=== PATIENT | male | born 2000 | race Two or more races ===

== ENCOUNTER 2024-01-23 17:28 | Emergency (ER) | payer MEDICAID, SELFPAY ==
[2024-01-23 17:57] VITALS: BP 128/79; PULSE 93; RESP 19; TEMP 36.9; O2SAT 98
--- NOTE | 2024-01-23 19:01 | PD.EDDENTL ---
ED Dental RME/HPI General Chief complaint: Dental/Oral/Throat Stated complaint: TOOTH ABSCESS X YESTERDAY Time Seen by Provider: 01/23/24 17:41 Arrival date/time: 01/23/24 17:28 23M with no significant PMH presents to ED with L upper dental pain for several days. Patient does not go to dentist regularly, but will. Limitations: no limitations Related Data Previous Rx's ?Medication ?Instructions ?Recorded amoxicillin 875 mg-potassium 1 tab PO BID 7 days #14 tabs 01/23/24 clavulanate 125 mg tablet naproxen 500 mg tablet 500 mg PO BID PRN pain #30 tabs 01/23/24 Allergies Allergy/AdvReac Type Severity Reaction Status Date / Time NKA Allergy Intermediate NONE Uncoded 01/23/24 17:30 Review of Systems Review of Systems Systems Reviewed: All systems reviewed, normal except as documented Constitutional Constitutional: Reports system reviewed and no additional complaints, except as documented, Denies fever(s) and Denies headache(s) ENT Ears, Nose, Mouth, and Throat: Reports as per HPI, Reports dental pain, Denies disequilibrium and Denies headache(s) Cardiovascular Cardiovascular: Reports system reviewed and no additional complaints, except as documented, Denies chest pain and Denies dyspnea Respiratory Respiratory: Reports system reviewed and no additional complaints, except as documented, Denies cough and Denies dyspnea Gastrointestinal Gastrointestinal: Reports system reviewed and no additional complaints, except as documented, Denies abdominal pain, Denies nausea and Denies vomiting Neurologic Neurologic: Reports system reviewed and no additional complaints, except as documented, Denies confusion, Denies disequilibrium and Denies headache(s) Psychiatric Psychiatric: Denies confusion Past Medical History Social History SMOKING STATUS: Never smoker ED Exam General Limitations: Present no limitations General appearance: Present alert and in no apparent distress Head Head exam: Present atraumatic Eye Eye exam: Present normal appearance, PERRL and EOMI ENT ENT exam: Present mucous membranes moist Expanded ENT Exam Teeth exam: Present gingival swelling Neck Neck exam: Present normal inspection, full ROM and trachea midline Chest Chest inspection: Present normal inspection and symmetric chest wall rise Respiratory Respiratory exam: Present normal lung sounds bilaterally Cardiovascular Cardiovascular exam: Present regular rate, normal rhythm and normal heart sounds Abdominal Exam Abdominal exam: Present soft and normal bowel sounds Extremities Exam Extremities exam: Present normal inspection and full ROM Back Exam Back exam: Present normal inspection and full ROM Neurological Exam Neurological exam: Present alert, oriented X3 and CN II-XII intact Psychiatric Psychiatric exam: Present normal affect and normal mood Skin Skin exam: Present warm, dry, intact and normal color Course Quality Measures none Orders Category Date Time Status Amoxicillin/Pot Clav 875 [Augmentin 875] Med 01/23/24 18:37 Discontinued 1 tab PO X1 ONE Ketorolac Inj [Toradol Inj] Med 01/23/24 18:37 Discontinued 60 mg IM X1 ONE Vital Signs Vital signs: Vital Signs Temperature 98.5 F 01/23/24 17:57 Pulse Rate 93 01/23/24 17:57 Respiratory Rate 19 01/23/24 17:57 Blood Pressure 128/79 01/23/24 17:57 Pulse Oximetry (%) 98 01/23/24 17:57 Oxygen Delivery Method Room Air 01/23/24 17:57 O2 at 98% on RA and WNLs Dental / Oral MDM Narrative MDM Narrative:: 23M with no significant PMH presents to ED with L upper dental pain for several days. Patient does not go to dentist regularly, but will. Physical exam reveals missing L upper tooth with gingival swelling. Patient is afebrile, calm, and alert. Meds and behavioral health counselor given. Patient data External records reviewed:: None Clinical information provided by:: patient Social determinants that could affect healthcare access:: none Patient has the following chronic illnesses:: none How is presenting disease/condition affected by chronic disease/condition?: no chronic disease Evaluation data The following diagnostics were reviewed and interpreted by me:: other (specify) (none) Lab and/or radiology exams considered but not ordered:: not ordered Interpretation Summary: n/a Medications / Prescriptions Medications or Prescriptions considered but not ordered:: ordered Medication administrations:: Medication Administration History Discontinued Medications Amoxicillin/Clavulanate Potassium (Amoxicillin/Pot Clav 875 Tablet) 1 tab PO X1 ONE Stop: 01/23/24 18:38 Ketorolac Tromethamine (Ketorolac Inj 60 Mg/2 Ml Vial) 60 mg IM X1 ONE Stop: 01/23/24 18:38 above Consultations Consultation(s) initiated? (list below): No Diagnosis Dental Differential Diagnosis: gingival abscess, dental caries, toothache, dental abscess, fracture of tooth and aphthous ulcer Most likely diagnosis given after review of the tests above:: gingival abscess Admission Indicated Admission indicated?: not indicated Admission Request Was there a request for admission?: No Disposition Plan Disposition Plan: Discharge Discharge Attestation Discharge Attestation: The patient and all family members were given an opportunity to ask questions and understood the discharge instructions. Discharge instructions specifically effects, indications for sooner follow up or return to the emergency department, and the expected course of current diagnosis. Patient condition: Stable Discharge Plan Plan Patient Disposition: HOME (Self Care) Disposition Comment: Stable Prescriptions/Referrals Prescriptions/Med Rec: New amoxicillin-pot clavulanate 875-125 mg tablet 1 tab PO BID 7 Days Qty: 14 0RF naproxen 500 mg tablet 500 mg PO BID PRN (Reason: pain) Qty: 30 0RF Referrals: Camron Reyes MD [Primary Care Provider] - In 1 week Problem List Clinical Impression: Gingival abscess Patient/Caregiver Discharge Instructions Additional Instructions: Please follow-up with PCP within 24-48 hours and return immediately if symptoms worsen. See dentist soon. Print Language: Czech Stand Alone Forms: Patient Portal Info Letter ROBE/SHAHIDA Supervising Physician PETER Supervising Physician: Dr. Funes
[2024-01-23] MEDS: AMOXICILLIN/POT CLAV 875 TABLET 1 TAB PO (19:22)
[2024-01-23] MEDS: KETOROLAC INJ 60 MG/2 ML VIAL IM (19:22)
== END 2024-01-23 19:48 | disposition home or self-care (01) ==
PROVIDERS: Emergency Provider Emergency Medicine; PCP Family Medicine
DX: K05.219 Aggressive periodontitis, localized, unspecified severity (principal)
CPT/HCPCS: 96372; 99283; J1885; A9270

== ENCOUNTER 2024-06-23 13:42 | Emergency (ER) | payer MEDICAID, SELFPAY ==
[2024-06-23 13:50] VITALS: BP 141/81; PULSE 108; RESP 18; TEMP 37.2; O2SAT 97; BMI 26.7
--- NOTE | 2024-06-23 14:03 | XR_ITS ---
Examination: CT brain head without contrast. 2-D sagittal coronal reconstructions Date and time of exam:June 23, 2024 1545 hours INDICATIONS: Onset right-sided facial droop today CTDI: vol (mGy):52 DLP: (mGycm):1142 Technique: Multiple CT axial sections of the brain have been obtained, 5 mm slice thickness. Contrast has not been administered. 2-D sagittal, coronal reconstructions have been obtained Low dose protocols were performed. One or more of the following dose reduction techniques were used; automated exposure control, adjustment of the mA and/or KV according to patient size, use of iterative reconstruction technique. Findings: No significant ventricular enlargement. Intra-axial or extra-axial hemorrhage density is not seen. No mass effect or midline shift Basal cisterns are not remarkable. Fourth ventricle is midline. Cranial vault intact. Impression: Negative for acute hemorrhage, mass effect or midline shift Brain MRI follow-up would best assess for demyelinating disease, acute ischemic change, as clinically warranted
--- NOTE | 2024-06-23 15:23 | PD.EDNEURO ---
Neuro Symptoms Deficit-RME/HPI General Chief Complaint: Neuro Symptoms/Deficit Stated Complaint: R FACIAL PARALYSIS SINCE LAST NIGHT Time Seen by Provider: 06/23/24 14:03 Arrival date/time: 06/23/24 13:42 23-year-old male presents to the emergency department today for complaints of right-sided facial paralysis ongoing since yesterday, patient reports no headache dizziness or weakness patient reports no extremity involvement Limitations: no limitations Related Data Previous Rx's ?Medication ?Instructions ?Recorded naproxen 500 mg tablet 500 mg PO BID PRN pain #30 tabs 01/23/24 prednisone 10 mg tablet 30 mg (3 x 10 mg) PO BID 5 days 06/23/24 #30 tabs valacyclovir 1 gram tablet 1,000 mg PO TID 7 days #21 tabs 06/23/24 Allergies Allergy/AdvReac Type Severity Reaction Status Date / Time NKA Allergy Intermediate NONE Uncoded 06/23/24 13:42 Review of Systems Review of Systems Systems Reviewed: All systems reviewed, normal except as documented Constitutional Constitutional: Reports system reviewed and no additional complaints, except as documented, Denies fever(s), Denies headache(s) and Denies weakness Eyes Eyes: Reports system reviewed and no additional complaints, except as documented and Denies blurry vision ENT Ears, Nose, Mouth, and Throat: Reports system reviewed and no additional complaints, except as documented, Denies abnormal hearing, Denies disequilibrium, Denies dizziness, Denies headache(s), Denies nasal congestion, Denies nasal discharge and Denies vertigo Cardiovascular Cardiovascular: Reports system reviewed and no additional complaints, except as documented, Denies chest pain and Denies dyspnea Respiratory Respiratory: Reports system reviewed and no additional complaints, except as documented, Denies chest congestion, Denies cough and Denies dyspnea Gastrointestinal Gastrointestinal: Reports system reviewed and no additional complaints, except as documented and Denies abdominal pain Musculoskeletal Musculoskeletal: Denies abnormal gait Integumentary/Breasts Skin/Breast: Reports system reviewed and no additional complaints, except as documented and Denies rash Neurologic Neurologic: Reports system reviewed and no additional complaints, except as documented, Reports as per HPI, Denies abnormal gait, Denies abnormal hearing, Denies abnormal movements, Denies convulsions, Denies disequilibrium, Denies dizziness, Denies headache(s), Denies vertigo, Denies weakness and Reports other (Right-sided facial palsy) Past Medical History Social History SMOKING STATUS: Never smoker ED Exam General Limitations: Present no limitations General appearance: Present alert and in no apparent distress Head Head exam: Present atraumatic Eye Eye exam: Present normal appearance, PERRL and EOMI ENT ENT exam: Present normal exam, normal oropharynx and mucous membranes moist Neck Neck exam: Present normal inspection, full ROM and trachea midline Chest Chest inspection: Present normal inspection and symmetric chest wall rise Respiratory Respiratory exam: Present normal lung sounds bilaterally Cardiovascular Cardiovascular exam: Present regular rate, normal rhythm and normal heart sounds Abdominal Exam Abdominal exam: Present soft and normal bowel sounds Extremities Exam Extremities exam: Present normal inspection and full ROM Back Exam Back exam: Present normal inspection and full ROM Neurological Exam Neurological exam: Present alert, oriented X3, normal gait, reflexes normal and other (Right-sided facial palsy no arm or leg involvement); Absent motor sensory deficit Psychiatric Psychiatric exam: Present normal affect and normal mood Skin Skin exam: Present warm, dry, intact and normal color Course Quality Measures none Orders Category Date Time Status CT head/brain wo con Stat Exams 06/23/24 14:03 Completed Vital Signs Vital signs: Vital Signs Temperature 99.0 F 06/23/24 13:50 Pulse Rate 108 H 06/23/24 13:50 Respiratory Rate 18 06/23/24 13:50 Blood Pressure 141/81 H 06/23/24 13:50 Pulse Oximetry (%) 97 06/23/24 13:50 Oxygen Delivery Method Room Air 06/23/24 13:50 O2 saturation 97% room air within normal limits Neuro Symptoms / Deficit MDM Narrative MDM Narrative:: 23-year-old male presents to the emergency department today for complaints of right-sided facial paralysis ongoing since yesterday, patient reports no headache dizziness or weakness patient reports no extremity involvement On exam patient has right-sided facial palsy consistent with Gallo's palsy Patient has no arm or leg involvement this is a classic Gallo's palsy patient cannot lift his right eyebrow and difficulty closing the right eye CT scan of the head obtained no acute emergent findings noted Patient be discharged on valacyclovir and prednisone Patient discharged home in no distress to follow-up with primary care doctor in the next 24 to 48 hours and for any worsening symptoms to return to the ER immediately Patient data External records reviewed:: [facility] previous records Clinical information provided by:: patient Social determinants that could affect healthcare access:: none Patient has the following chronic illnesses:: None How is presenting disease/condition affected by chronic disease/condition?: no chronic disease Evaluation data The following diagnostics were reviewed and interpreted by me:: radiology exam(s) Lab and/or radiology exams considered but not ordered:: Radiology obtain Interpretation Summary: Reviewed by me Medications / Prescriptions Medications or Prescriptions considered but not ordered:: Given Medication administrations:: Given Consultations Consultation(s) initiated? (list below): No Diagnosis Neuro Differential Diagnosis: other (Gallo's palsy, subdural hematoma, mass) Most likely diagnosis given after review of the tests above:: Gallo's palsy Admission Indicated Admission indicated?: not indicated Admission Request Was there a request for admission?: No Disposition Plan Disposition Plan: Discharge Discharge Attestation Discharge Attestation: The patient and all family members were given an opportunity to ask questions and understood the discharge instructions. Discharge instructions specifically effects, indications for sooner follow up or return to the emergency department, and the expected course of current diagnosis. Patient condition: Stable Discharge Plan Plan Patient Disposition: HOME (Self Care) Disposition Comment: Stable Prescriptions/Referrals Prescriptions/Med Rec: New prednisone 10 mg tablet 30 mg PO BID 5 Days Qty: 30 0RF valacyclovir 1 gram tablet 1,000 mg PO TID 7 Days Qty: 21 0RF No Action naproxen 500 mg tablet 500 mg PO BID PRN (Reason: pain) Qty: 30 0RF Referrals: Camron Reyes MD [Primary Care Provider] - In 1 week Problem List Clinical Impression: Gallo's palsy Patient/Caregiver Discharge Instructions Education Materials: ED Gallo's Palsy Additional Instructions: Please follow up with your primary care doctor in the next 24-48hrs for any worsening symptoms return here immediately Print Language: Cymraes Stand Alone Forms: Eliana Award Info., Work/School Release, Patient Portal Info Letter PA/SHAHIDA Supervising Physician ROBE/SHAHIDA Supervising Physician: Dr rueda
== END 2024-06-23 15:47 | disposition home or self-care (01) ==
PROVIDERS: Emergency Provider Emergency Medicine; PCP Family Medicine
DX: G51.0 Bell's palsy (principal)
CPT/HCPCS: 70450; 99284

== ENCOUNTER 2024-09-13 22:06 | Emergency (ER) | payer MEDICAID, SELFPAY ==
[2024-09-13 22:07] VITALS: BMI 27.1
[2024-09-13 22:45] VITALS: BP 115/82; PULSE 106; RESP 18; TEMP 37.1; O2SAT 99
[2024-09-13] MEDS: LIDOCAINE HCL 1% 20 ML VIAL INFL (23:23)
--- NOTE | 2024-09-13 23:23 | PD.EDANIML ---
ED Animal Bite RME/HPI General Chief Complaint: Animal Bite Stated Complaint: DOG BITES L ARM Time Seen by Provider: 09/13/24 22:09 Arrival date/time: 09/13/24 22:06 This is a case of 33-year-old male with no medical history came into the emergency room due to multiple dog bite on the left hand and left forearm patient sustained 5 small laceration 1 cm each minimal bleeding no foreign body patient had rabies vaccine is up-to-date patient tetanus shot is also up-to-date Limitations: no limitations Related Data Previous Rx's ?Medication ?Instructions ?Recorded naproxen 500 mg tablet 500 mg PO BID PRN pain #30 tabs 01/23/24 amoxicillin 875 mg-potassium 1 tab PO Q12H #20 tabs 09/13/24 clavulanate 125 mg tablet ibuprofen 800 mg tablet 800 mg PO Q8H PRN pain #20 tabs 09/13/24 mupirocin 2 % topical ointment 1 applic topical TID #22 grams 09/13/24 Allergies Allergy/AdvReac Type Severity Reaction Status Date / Time banana Allergy Verified 09/13/24 22:14 cantaloupe Allergy Verified 09/13/24 22:14 pineapple Allergy Verified 09/13/24 22:14 NKA Allergy Intermediate NONE Uncoded 09/13/24 22:14 Review of Systems Review of Systems Systems Reviewed: All systems reviewed, normal except as documented Constitutional Constitutional: Reports system reviewed and no additional complaints, except as documented Cardiovascular Cardiovascular: Reports system reviewed and no additional complaints, except as documented and Reports as per HPI Respiratory Respiratory: Reports system reviewed and no additional complaints, except as documented and Reports as per HPI Musculoskeletal Musculoskeletal: Reports other (Left forearm and left hand pain) Integumentary/Breasts Skin/Breast: Reports other (Laceration) Neurologic Neurologic: Reports system reviewed and no additional complaints, except as documented and Reports as per HPI Past Medical History Social History SMOKING STATUS: Never smoker ED Exam General Limitations: Present no limitations General appearance: Present alert, in no apparent distress and other (Patient is awake alert oriented not in distress nontoxic) Head Head exam: Present atraumatic, normocephalic and normal inspection Eye Eye exam: Present normal appearance, PERRL and EOMI ENT ENT exam: Present normal exam, normal oropharynx and mucous membranes moist Neck Neck exam: Present normal inspection, full ROM and trachea midline Chest Chest inspection: Present normal inspection and symmetric chest wall rise Respiratory Respiratory exam: Present normal lung sounds bilaterally; Absent respiratory distress, wheezes, stridor, accessory muscle use or prolonged expiratory phase Cardiovascular Cardiovascular exam: Present regular rate, normal rhythm and normal heart sounds; Absent bradycardia, tachycardia, irregular rhythm, systolic murmur or diastolic murmur Abdominal Exam Abdominal exam: Present soft and normal bowel sounds; Absent distention, tenderness, guarding, rebound, rigidity, diminished bowel sounds, hyperactive bowel sounds or hypoactive bowel sounds Extremities Exam Extremities exam: Present normal inspection and full ROM Expanded Upper Extremity Exam Forearm/Wrist exam: Present normal inspection, full ROM and laceration (3 small laceration left forearm 1 cm each linear minimal bleeding no foreign body no bone or tendon injury ROM is intact pulses were full and equal capillary refill less than 2 seconds sensory and reflex were normal); Absent tenderness, swelling or abrasion Hand exam: Present normal inspection, full ROM and laceration (Patient sustained a 2 laceration 1 cm each linear minimal bleeding no foreign body no bone or tendon injury ROM intact neurovascular intact nail is intact); Absent tenderness, swelling or abrasion Back Exam Back exam: Present normal inspection and full ROM Neurological Exam Neurological exam: Present alert, oriented X3, CN II-XII intact, normal gait and reflexes normal; Absent motor sensory deficit Psychiatric Psychiatric exam: Present normal affect and normal mood Skin Skin exam: Present warm, dry, intact and normal color Course Quality Measures none Orders Category Date Time Status Amoxicillin/Pot Clav 875 [Augmentin 875] Med 09/13/24 23:09 Discontinued 1 tab PO X1 ONE Ibuprofen Tab [Motrin Tab] Med 09/13/24 23:08 Discontinued 800 mg PO X1 ONE Lidocaine 1% 20 ml [Xylocaine 1% 20 ML] Med 09/13/24 23:08 Discontinued 20 ml INFL X1 ONE Vital Signs Vital signs: Vital Signs Temperature 98.8 F 09/13/24 22:45 Pulse Rate 106 H 09/13/24 22:45 Respiratory Rate 18 09/13/24 22:45 Blood Pressure 115/82 09/13/24 22:45 Pulse Oximetry (%) 99 09/13/24 22:45 Oxygen Delivery Method Room Air 09/13/24 22:45 Patient is afebrile not tachycardic not tachypneic BP stable not hypoxic oxygen saturation in room air normal 99% PROCEDURES: Laceration Laceration 1: Site: other (Left forearm left hand) Size (cm): 5 Description: linear Depth: simple, single layer Local Anesthetic: lidocaine 1% Amount of anesthesia used (mL): 5 Pre-repair: irrigated extensively and deep structures intact Skin layer closed with: nylon Suture size (cm): 4-0 Number of sutures: 5 Technique: simple, interrupted Animal Bite MDM Narrative MDM Narrative:: This is a case of 33-year-old male with no medical history came into the emergency room due to multiple dog bite on the left hand and left forearm patient sustained 5 small laceration 1 cm each minimal bleeding no foreign body patient had rabies vaccine is up-to-date patient tetanus shot is also up-to-date patient is awake alert oriented not in distress nontoxic looking patien sustained 5 laceration to the left forearm and left hand 1 cm each laceration linear minimal bleeding no foreign body no bone or tendon injury no cellulitis no abscess ROM intact neurovascular intact laceration repair was performed patient tolerated well the procedure no complication noted bleeding controlled procedure done by Tiff protocol and via sterile patient was advised to follow-up with PCP in 2 days for evaluation and wound check and removal of suture in 10 days patient was also advised to return in the emergency room for any signs and symptoms of infection such as redness swelling discharge from the wound pain fever chills patient was prescribed with Augmentin for dog bite and laceration and mupirocin ointment and he will take Tylenol Motrin for pain Patient was discharged with comfortable condition walking with stable gait. Patient verbalized no further complains explained diagnosis and answered patient question. Patient is comfortable with the proposed management plan including the need to follow up with his/her primary care physician and any specialist if applicable Discussed patient for any urgent condition or worsening sx, He/She needed to go to emergency room immediately or call 911. Patient acknowledge the responsibility to follow up as instructed and to monitor her/his symptoms. For any persistence of the symptoms for more than 3-5 days return precaution advised. Discussed the result of the test and was given printed discharge instruction Patient data External records reviewed:: [facility] previous records Clinical information provided by:: patient Social determinants that could affect healthcare access:: none Patient has the following chronic illnesses:: None How is presenting disease/condition affected by chronic disease/condition?: no chronic disease Evaluation data The following diagnostics were reviewed and interpreted by me:: other (specify) Lab and/or radiology exams considered but not ordered:: None Interpretation Summary: None Medications / Prescriptions Medications or Prescriptions considered but not ordered:: Given Medication administrations:: Medication Administration History Discontinued Medications Amoxicillin/Clavulanate Potassium (Amoxicillin/Pot Clav 875 Tablet) 1 tab PO X1 ONE Stop: 09/13/24 23:10 Last Admin: 09/13/24 23:25 Dose: 1 tab Documented By: MERCEDEZ Ibuprofen (Ibuprofen Tab 400 Mg Tablet) 800 mg PO X1 ONE Stop: 09/13/24 23:09 Last Admin: 09/13/24 23:25 Dose: 800 mg Documented By: MERCEDEZ Lidocaine HCl (Lidocaine Hcl 1% 20 Ml Vial) 20 ml INFL X1 ONE Stop: 09/13/24 23:09 Last Admin: 09/13/24 23:23 Dose: 20 ml Documented By: MERCEDEZ Given Consultations Consultation(s) initiated? (list below): No Diagnosis Differential diagnosis animal bite: dog bite Most likely diagnosis given after review of the tests above:: Dog bite multiple laceration Admission Indicated Admission indicated?: not indicated Explain why admission is indicated or not indicated:: Not indicated Admission Request Was there a request for admission?: No Admission Attestation Admission request attestation: Not indicated Disposition Plan Disposition Plan: Discharge Discharge Attestation Discharge Attestation: The patient and all family members were given an opportunity to ask questions and understood the discharge instructions. Discharge instructions specifically effects, indications for sooner follow up or return to the emergency department, and the expected course of current diagnosis. Patient condition: Stable Discharge Plan Plan Patient Disposition: HOME (Self Care) Patient condition on transfer: Stable Prescriptions/Referrals Prescriptions/Med Rec: New amoxicillin-pot clavulanate 875-125 mg tablet 1 tab PO Q12H Qty: 20 0RF mupirocin 2 % ointment 1 applic topical TID Qty: 22 0RF ibuprofen 800 mg tablet 800 mg PO Q8H PRN (Reason: pain) Qty: 20 0RF No Action naproxen 500 mg tablet 500 mg PO BID PRN (Reason: pain) Qty: 30 0RF Problem List Clinical Impression: Dog bite, Hand laceration, Laceration of forearm Patient/Caregiver Discharge Instructions Education Materials: ED Animal Bite (General), ED Dog Bite, ED Laceration, Hand: All Closures Additional Instructions: Follow-up with your primary care physician in 2 days for reevaluation and wound check and 10 days for removal of suture worsening symptoms or any emergent concerns such as redness swelling discharge from the wound pain fever chills call 911 or go to the nearest emergency room take your medication as directed finish the course of antibiotic keep the area clean and dry Print Language: Taiwanese Stand Alone Forms: Eliana Award Info., Patient Portal Info Letter PA/SHAHIDA Supervising Physician PA/SHAHIDA Supervising Physician: DR kay
[2024-09-13] MEDS: IBUPROFEN TAB 400 MG TABLET 800 MG PO (23:25)
[2024-09-13] MEDS: AMOXICILLIN/POT CLAV 875 TABLET 1 TAB PO (23:25)
== END 2024-09-13 23:43 | disposition home or self-care (01) ==
LOC: SERX 23:49
PROVIDERS: Emergency Provider Emergency Medicine
DX: S61.452A Open bite of left hand, initial encounter (principal); W54.0XXA Bitten by dog, initial encounter
CPT/HCPCS: 12002; 99283; J3490; A9270